=== PATIENT | male | born 1955 | race Caucasian/White ===

== ENCOUNTER → 2016-11-18 | Outpatient (CLI) | payer BC, MEDICARE ==
[~2016-11-18] MED LIST: /DULO30CA; /DULO30CA OR; BACL10TA PO; BACL10TA2; BACL10TA2 OR; FLON0.05; FLUTICASONE; LIDO5DIS; LIDO5DIS EX; LYRI200C; LYRI200C OR; SOMA250T; SOMA250T OR; THERMACARE; THERMACARE TOP; TRAM50TA2; TRAM50TA2 OR; TYLE325T5 PO; VICO5TAB; VICO5TAB OR; [UNRECOGNIZED DRUG - OTHER] PO
[2016-11-18 07:21] LABS: BASO % 0.9 % (0.0-1.0); EOS # 0.2 K/mm3 (0.0-0.50); EOS % 2.8 % (0.0-3.0); LARGE UNSTAINED CELL # 0.2 K/mm3 (0.0-0.4); LARGE UNSTAINED CELL % 3.5 % (0.0-4.0); LYMPH # 2.1 K/mm3 (1.5-4.5); LYMPH % 36.7 % (24.0-44.0); MEAN CORPUSCULAR HEMOGLOBIN 32.2 pg (27.0-33.0); MEAN CORPUSCULAR HGB CONC 33.4 g/dl (32.0-36.5); MEAN CORPUSCULAR VOLUME 96.5 fl (80.0-96.0); MONO # 0.3 K/mm3 (0.0-0.8); MONO % 5.1 % (0.0-5.0); NEUTROPHILS # 2.7 K/mm3 (1.8-7.7); PLATELET COUNT, AUTOMATED 210 k/mm3 (150-450); RED CELL DISTRIBUTION WIDTH 13.8 % (11.5-14.5); WHITE BLOOD COUNT 5.3 K/mm3 (4.0-10.0)
[2016-11-18 07:55] LABS: ALBUMIN 4.1 GM/DL (3.2-5.2); ALBUMIN/GLOBULIN RATIO 1.41 (1.00-1.93); ALKALINE PHOSPHATASE 92 U/L (45-117); ALT/SGPT 29 U/L (12-78); ANION GAP 5 MEQ/L (8-16); AST/SGOT 20 U/L (15-37); BILIRUBIN,TOTAL 0.6 MG/DL (0.2-1.0); BLOOD UREA NITROGEN 14 MG/DL (7-18); CALCIUM LEVEL 8.9 MG/DL (8.8-10.2); CARBON DIOXIDE LEVEL 31 MEQ/L (21-32); CHLORIDE LEVEL 106 MEQ/L (98-107); CHOLESTEROL LEVEL 223 MG/DL (<200); CREATININE FOR GFR 0.99 MG/DL (0.70-1.30); GLOMERULAR FILTRATION RATE > 60.0 (>49); GLUCOSE, FASTING 114 MG/DL (80-110); POTASSIUM SERUM 4.5 MEQ/L (3.5-5.1); SODIUM LEVEL 142 MEQ/L (136-145); TRIGLYCERIDES LEVEL 79 MG/DL (<150)
[2016-11-19 14:18] LABS: PSA TOTAL 0.7 ng/mL (0.0-4.0)
== END ==
LOC: M LAB 06:48
PROVIDERS: ATTEND Nurse Practitioner Family
DX: G89.4 Chronic pain syndrome (principal); Z12.5 Encounter for screening for malignant neoplasm of prostate

== ENCOUNTER → 2017-03-16 | Outpatient (CLI) | payer BC, MEDICARE ==
--- NOTE | 2017-03-16 11:01 | REP ---
Clinical: Shortness of breath . Comparison: 12/16/2014 . Technique: PA and lateral. Findings: The mediastinum and cardiac silhouette are normal. The lung peng demonstrate chronic interstitial changes and evidence for COPD without acute consolidation, effusion, or pneumothorax. The skeletal structures are intact and normal. Impression: 1. No acute cardiopulmonary process. Signed by Mitch Dean MD 03/16/2017 10:52 A
[2017-03-16 14:13] LABS: ALBUMIN 4.2 GM/DL (3.2-5.2); ALBUMIN/GLOBULIN RATIO 1.31 (1.00-1.93); ALKALINE PHOSPHATASE 87 U/L (45-117); ALT/SGPT 24 U/L (12-78); ANION GAP 8 MEQ/L (8-16); AST/SGOT 18 U/L (15-37); BILIRUBIN,TOTAL 0.6 MG/DL (0.2-1.0); BLOOD UREA NITROGEN 12 MG/DL (7-18); CALCIUM LEVEL 9.3 MG/DL (8.8-10.2); CARBON DIOXIDE LEVEL 29 MEQ/L (21-32); CHLORIDE LEVEL 106 MEQ/L (98-107); CHOLESTEROL LEVEL 139 MG/DL (<200); CREATININE FOR GFR 0.82 MG/DL (0.70-1.30); GLOMERULAR FILTRATION RATE > 60.0 (>49); GLUCOSE, FASTING 94 MG/DL (80-110); SODIUM LEVEL 143 MEQ/L (136-145); TOTAL PROTEIN 7.4 GM/DL (6.4-8.2); TRIGLYCERIDES LEVEL 58 MG/DL (<150)
[2017-03-16 14:25] LABS: POTASSIUM SERUM 5.4 MEQ/L (3.5-5.1)
== END ==
LOC: M WUC 10:01
PROVIDERS: ATTEND Nurse Practitioner Family
DX: G89.4 Chronic pain syndrome (principal)

== ENCOUNTER → 2017-05-23 | Outpatient (CLI) | payer BC, MEDICARE ==
--- NOTE | 2017-05-23 11:05 | REP ---
Clinical: Pain. History of prior trauma and surgery. Technique: AP, lateral, bilateral oblique, flexion/extension, and open-mouth views of the cervical spine. Comparison: 03/11/2015. Findings: The patient is status post anterior fusion at C3 through C7 with satisfactory alignment and appears unchanged compared to 2014. Minimal posterior subluxation at the C2-3 level is essentially unchanged. No acute fracture / compression injury or subluxation. Spinous processes are intact. Prevertebral soft tissues are normal. Oblique views demonstrate relatively patent neural foramen. Open mouth view demonstrates normal C1-C2 articulation and odontoid process. Impression: Chronic stable changes as described above. Signed by Mitch Dean MD 05/23/2017 10:57 A
--- NOTE | 2017-05-24 07:42 | REP ---
Clinical: Back pain. Prior surgery. Technique: AP, lateral, bilateral oblique, flexion/extension and coned-down views of the lumbosacral spine. Comparison: 12/23/2014. Findings: The patient is noted to be status post X-fix device spanning the L3-4 spinous process. Alignment is maintained and relatively stable compared to prior examination. Moderate multilevel degenerative changes include marginal osteophytes, endplate sclerosis and minimal disc space narrowing along with mild hypertrophic facet changes. No acute fracture / compression injury. Impression: Moderate multilevel degenerative changes. No acute fracture / compression injury or acute subluxation. Signed by Mitch Dean MD 05/23/2017 11:04 A
== END ==
LOC: M WUC 10:10
PROVIDERS: ATTEND Neurological Surgery
DX: M47.892 Other spondylosis, cervical region (principal)

== ENCOUNTER → 2017-11-04 | Outpatient (CLI) | payer BC, MEDICARE ==
[~2017-11-04] MED LIST changes: -/DULO30CA; -/DULO30CA OR; -BACL10TA PO; -BACL10TA2; -BACL10TA2 OR; -FLON0.05; -FLUTICASONE; +ISOVUE-370 76% 100ML VIAL (Q9967) As Ordered; -LIDO5DIS; -LIDO5DIS EX; -LYRI200C; -LYRI200C OR; -SOMA250T; -SOMA250T OR; -THERMACARE; -THERMACARE TOP; -TRAM50TA2; -TRAM50TA2 OR; -TYLE325T5 PO; -VICO5TAB; -VICO5TAB OR; -[UNRECOGNIZED DRUG - OTHER] PO
== END ==
LOC: M RAD 15:24
DX: R07.9 Chest pain, unspecified (principal)
CPT/HCPCS: Q9967

== ENCOUNTER → 2017-11-24 | Outpatient (REF) | payer BC, MEDICARE ==
[2017-11-24 13:04] LABS: BASO # 0.1 10^3/uL (0.0-0.2); BASO % 0.9 % (0.0-1.0); EOS # 0.1 10^3/uL (0.0-0.50); EOS % 1.7 % (0.0-3.0); HEMATOCRIT 43.5 % (42.0-52.0); HEMOGLOBIN 14.3 g/dl (13.5-17.5); IMMATURE GRANULOCYTE % 0.3 % (0-3.0); LYMPH # 1.6 10^3/uL (1.5-4.5); LYMPH % 25.1 % (24.0-44.0); MEAN CORPUSCULAR HEMOGLOBIN 31.2 pg (27.0-33.0); MEAN CORPUSCULAR HGB CONC 32.9 g/dl (32.0-36.5); MEAN CORPUSCULAR VOLUME 94.8 fl (80.0-96.0); MONO # 0.5 10^3/uL (0.0-0.8); MONO % 7.9 % (0.0-5.0); NEUTROPHILS # 4.1 10^3/uL (1.8-7.7); NEUTROPHILS % 64.1 % (36.0-66.0); PLATELET COUNT, AUTOMATED 272 10^3/uL (150-450); RED BLOOD COUNT 4.59 10^6/uL (4.30-6.10); RED CELL DISTRIBUTION WIDTH 13.4 % (11.5-14.5); WHITE BLOOD COUNT 6.5 10^3/uL (4.0-10.0)
[2017-11-24 13:26] LABS: ALBUMIN 4.1 GM/DL (3.2-5.2); ALBUMIN/GLOBULIN RATIO 1.28 (1.00-1.93); ALKALINE PHOSPHATASE 84 U/L (45-117); ALT/SGPT 24 U/L (12-78); ANION GAP 4 MEQ/L (8-16); AST/SGOT 17 U/L (7-37); BILIRUBIN,TOTAL 0.5 MG/DL (0.2-1.0); BLOOD UREA NITROGEN 17 MG/DL (7-18); CALCIUM LEVEL 9.1 MG/DL (8.8-10.2); CARBON DIOXIDE LEVEL 29 MEQ/L (21-32); CHLORIDE LEVEL 108 MEQ/L (98-107); CHOLESTEROL LEVEL 128 MG/DL (<200); CHOLESTEROL RISK RATIO 2.782 (<5); CREATININE FOR GFR 0.97 MG/DL (0.70-1.30); GLOMERULAR FILTRATION RATE > 60.0 (>49); GLUCOSE, FASTING 114 MG/DL (70-100); HDL CHOLESTEROL 46 MG/DL (>40); LDL CHOLESTEROL 71.8 MG/DL (<100); NON-HDL-C 82 MG/DL; SODIUM LEVEL 141 MEQ/L (136-145); TOTAL PROTEIN 7.3 GM/DL (6.4-8.2); TRIGLYCERIDES LEVEL 51 MG/DL (<150)
[2017-11-24 13:32] LABS: POTASSIUM SERUM 5.3 MEQ/L (3.5-5.1)
== END ==
LOC: M LABDRAW1 11:32
DX: R91.8 Other nonspecific abnormal finding of lung field (principal); E78.4 Other hyperlipidemia
CPT/HCPCS: 80053

== ENCOUNTER → 2018-03-14 | Outpatient (CLI) | payer BC, MEDICARE | LOC: M RAD 10:53 | DX: R91.8 Other nonspecific abnormal finding of lung field (principal); N20.0 Calculus of kidney | CPT/HCPCS: 71250 ==

== ENCOUNTER → 2018-07-19 | Outpatient (REF) | payer BC, MEDICARE ==
[~2018-07-19] MED LIST changes: +/DULO30CA; +/DULO30CA OR; +BACL10TA PO; +BACL10TA2; +BACL10TA2 OR; +FLON0.05; +FLUTICASONE; -ISOVUE-370 76% 100ML VIAL (Q9967) As Ordered; +LIDO5DIS; +LIDO5DIS EX; +LYRI200C; +LYRI200C OR; +SOMA250T; +SOMA250T OR; +THERMACARE; +THERMACARE TOP; +TRAM50TA2; +TRAM50TA2 OR; +TYLE325T5 PO; +VICO5TAB; +VICO5TAB OR; +[UNRECOGNIZED DRUG - OTHER] PO
[2018-07-19 12:42] LABS: BASO # 0.1 10^3/uL (0.0-0.2); BASO % 0.5 % (0.0-1.0); EOS # 0.1 10^3/uL (0.0-0.50); EOS % 0.7 % (0.0-3.0); HEMATOCRIT 42.2 % (42.0-52.0); HEMOGLOBIN 13.8 g/dl (13.5-17.5); LYMPH # 1.4 10^3/uL (1.5-4.5); LYMPH % 12.7 % (24.0-44.0); MEAN CORPUSCULAR HEMOGLOBIN 31.2 pg (27.0-33.0); MEAN CORPUSCULAR HGB CONC 32.7 g/dl (32.0-36.5); MEAN CORPUSCULAR VOLUME 95.5 fl (80.0-96.0); MONO # 0.5 10^3/uL (0.0-0.8); MONO % 4.2 % (0.0-5.0); NEUTROPHILS % 81.5 % (36.0-66.0); PLATELET COUNT, AUTOMATED 227 10^3/uL (150-450); RED BLOOD COUNT 4.42 10^6/uL (4.30-6.10)
[2018-07-19 12:50] LABS: ALBUMIN 3.9 GM/DL (3.2-5.2); ALT/SGPT 17 U/L (12-78); BILIRUBIN,TOTAL 0.6 MG/DL (0.2-1.0); BLOOD UREA NITROGEN 13 MG/DL (7-18); CALCIUM LEVEL 8.8 MG/DL (8.8-10.2); CARBON DIOXIDE LEVEL 29 MEQ/L (21-32); CHLORIDE LEVEL 106 MEQ/L (98-107); CHOLESTEROL LEVEL 123 MG/DL (<200); CHOLESTEROL RISK RATIO 2.562 (<5); CREATININE FOR GFR 0.92 MG/DL (0.70-1.30); GLOMERULAR FILTRATION RATE > 60.0 (>49); GLUCOSE, FASTING 116 MG/DL (70-100); HDL CHOLESTEROL 48 MG/DL (>40); LDL CHOLESTEROL 62 MG/DL (<100); NON-HDL-C 75 MG/DL; POTASSIUM SERUM 4.6 MEQ/L (3.5-5.1); SODIUM LEVEL 141 MEQ/L (136-145); TOTAL PROTEIN 7.1 GM/DL (6.4-8.2); TRIGLYCERIDES LEVEL 64 MG/DL (<150)
[2018-07-20 15:05] LABS: PSA TOTAL 1.1 ng/mL (0.0-4.0)
== END ==
LOC: M LABDRAW1 11:38
PROVIDERS: ATTEND Nurse Practitioner Family
DX: J44.9 Chronic obstructive pulmonary disease, unspecified (principal); Z12.5 Encounter for screening for malignant neoplasm of prostate

== ENCOUNTER → 2018-09-15 | Outpatient (CLI) | payer BC, MEDICARE ==
--- NOTE | 2018-09-15 11:18 | REP ---
CT of the chest without IV contrast: Comparisons are 03/14/2018 and 11/04/2017 for follow up of lung nodules: Multiple lung nodules are identified on 11/04/2017. On 03/14/2018 all these lung nodules as had resolved except for a persisting 10 mm lung nodule along the right minor fissure. On the study today this nodule persists and measures 12 mm as an interval change. There are no other lung nodules. All of the previous lung nodules has resolved as previously discussed. There are no acute infiltrates. No pleural effusions. There is no mediastinal or axillary lymph node enlargement. In the absence of IV contrast the study is insensitive for hilar lymph node enlargement. Thoracic aorta is unremarkable except for occasional calcified atheroma. Cardiac size is normal. There is calcified atheroma. The proximal coronary arteries. The visualized upper abdominal contents are unremarkable except for a persisting nonobstructive calculus in the right renal pelvis today measuring 9 mm. There is no adrenal mass. Impression: There is a persisting noncalcified lung nodule along the minor fissure of the right lung today measuring 12 mm. This measured 10 mm on 11/04/2017. Therefore, follow-up chest CT in approximately 6 months is recommended for further evaluation of this nodule. There is a persisting nonobstructive calcification in the right renal pelvis today measuring 12 mm . Electronically Signed by Adam Spencer MD 09/15/2018 11:10 A
== END ==
LOC: M RAD 09:58
PROVIDERS: ATTEND Internal Medicine Pulmonary Disease
DX: R91.1 Solitary pulmonary nodule (principal); N28.89 Other specified disorders of kidney and ureter

== ENCOUNTER 2018-12-27 08:58 | Day surgery (SDC) | payer BC, MEDICARE ==
[~2018-12-27] VITALS: Ht 170.2 cm; Wt 63.1 kg
[~2018-12-27 08:58] MED LIST changes: -/DULO30CA; -/DULO30CA OR; +ADV250INH INH; +ANOR1AER INH; +ATOR1TAB19 PO; +BACL-60 PO; -BACL10TA PO; +BACL1TAB8 PO; +CYMB1CAP5; +CYMB1CAP5 OR; +DULO1CAP3 PO; +FLON1SPR NARES; +HYDR-3719 PO; +LYRI200C PO; +LYRI225C PO; +NS 1,000 ML IV ONE; +PROAAER10 INH; +VICO5TAB17 PO; +ZOLP10TA2 PO
[2018-12-27] MEDS ORDERED: LIDOCAINE 2% INJ 100 MG/5 ML SDV (FOR ANES.) As Ordered ONE (09:57)
[2018-12-27] MEDS ORDERED: PROPOFOL 200 MG/20 ML VIAL As Ordered ONE (09:58)
--- NOTE | 2018-12-27 10:29 | ROOR ---
Patient Name: Lee Campos Procedure Date: 12/27/2018 9:55 AM Date of : 1955 Age: 63 Room: [facility] Gender: Male Note Status: Finalized Procedure: Colonoscopy Indications: Screening for colorectal malignant neoplasm Providers: Samuel Reinoso MD Referring MD: Mane Skinner NP Requesting Provider: Medicines: Monitored Anesthesia Care Complications: No immediate complications. Procedure: Pre-Anesthesia Assessment: - Prior to the procedure, a History and Physical was performed, and patient medications and allergies were reviewed. The patient is competent. The risks and benefits of the procedure and the sedation options and risks were discussed with the patient. All questions were answered and informed consent was obtained. Patient identification and proposed procedure were verified by the physician, the nurse and the anesthesiologist in the endoscopy suite. Mental Status Examination: alert and oriented. Airway Examination: normal oropharyngeal airway and neck mobility. Respiratory Examination: clear to auscultation. CV Examination: normal. Prophylactic Antibiotics: The patient does not require prophylactic antibiotics. Prior Anticoagulants: The patient has taken no previous anticoagulant or antiplatelet agents. ASA Grade Assessment: III - A patient with severe systemic disease. After reviewing the risks and benefits, the patient was deemed in satisfactory condition to undergo the procedure. The anesthesia plan was to use monitored anesthesia care (MAC). Immediately prior to administration of medications, the patient was re-assessed for adequacy to receive sedatives. The heart rate, respiratory rate, oxygen saturations, blood pressure, adequacy of pulmonary ventilation, and response to care were monitored throughout the procedure. The physical status of the patient was re-assessed after the procedure. The Colonoscope was introduced through the anus and advanced to the cecum, identified by appendiceal orifice and ileocecal valve. The colonoscopy was performed without difficulty. The patient tolerated the procedure well. The quality of the bowel preparation was adequate to identify polyps. Findings: The perianal and digital rectal examinations were normal. A diminutive polyp was found in the sigmoid colon. The polyp was flat. The polyp was removed with a cold snare. Resection and retrieval were complete. Estimated blood loss was minimal. The retroflexed view of the distal rectum and anal verge was normal and showed no anal or rectal abnormalities. Impression: - One diminutive polyp in the sigmoid colon, removed with a cold snare. Resected and retrieved. - The distal rectum and anal verge are normal on retroflexion view. Recommendation: - Discharge patient to home (ambulatory). - Repeat colonoscopy in 5 years for surveillance. Samuel Reinoso MD Samuel Reinoso MD 12/27/2018 10:29:12 AM Electronically signed by Samuel Reinoso MD Number of Addenda: 0 Note Initiated On: 12/27/2018 9:55 AM Estimated Blood Loss: Estimated blood loss was minimal.
[2018-12-27 11:10] VITALS: BP 108/56
== END 2018-12-27 11:12 | disposition home or self-care (01) ==
LOC: M OPP 08:58
PROVIDERS: ATTEND Surgery
DX: D12.5 Benign neoplasm of sigmoid colon (principal); Z12.11 Encounter for screening for malignant neoplasm of colon

== ENCOUNTER → 2019-03-29 | Outpatient (CLI) | payer BC, MEDICARE ==
[~2019-03-29] MED LIST changes: -DULO1CAP3 PO; +DULO1CAP6 PO; -NS 1,000 ML IV ONE
--- NOTE | 2019-03-30 06:14 | REP ---
Clinical: Follow up solitary pulmonary nodule. Comparison: 09/15/2018, 03/14/2018. Technique: Axial noncontrast images from the thoracic inlet to the upper abdomen with coronal and sagittal re-formations. Findings: A small persistent density inseparable from the minor fissure currently measures approximately 10 mm and is essentially unchanged through 11/04/2017. Stable by apical and subtle subpleural scarring along with chronic interstitial changes are again noted and unchanged. No new acute significant nodule, consolidation, or mass lesion appreciated. No pleural effusion. No pneumothorax. Tracheobronchial tree is patent. Mediastinum demonstrates atherosclerotic changes to the thoracic aorta and coronary arteries without aortic aneurysm or cardiomegaly. No pericardial effusion. No obvious adenopathy. Osseous structures are intact. Limited upper abdomen demonstrates normal bilateral adrenal glands and nonobstructing right renal calculus. Impression: 1. Persistent density inseparable from the right minor fissure unchanged through 11/04/2017 and likely representing scarring. 2. No further acute mediastinal or pleuroparenchymal process appreciated. Electronically Signed by Mitch Dean MD 03/30/2019 06:05 A
== END ==
LOC: M RAD 09:51
PROVIDERS: ATTEND Internal Medicine Pulmonary Disease
DX: R91.8 Other nonspecific abnormal finding of lung field (principal); N20.0 Calculus of kidney

== ENCOUNTER → 2020-11-03 | Outpatient (CLI) | payer BC, MEDICARE ==
--- NOTE | 2020-11-03 11:32 | REP ---
INDICATION: PAIN. COMPARISON: 05/23/2017 TECHNIQUE: Seven views FINDINGS: Vertebral body height and alignment is unchanged. Once again, internal fixation plate and a fixing screws seen C3 through C7 inclusive. Vertebral body fusion is again noted. Once again, flexion and extension is limited radiographically status quo. There is no change in appearance of the spine, intervertebral foramina, or neural canal. The fixation plate and fixing screws are unchanged.. IMPRESSION: No evidence of significant change. <Electronically signed by Florencio Mckeon > 11/03/20 [id number]
== END ==
LOC: M WUC 09:33
PROVIDERS: ATTEND Nurse Practitioner Adult Health
DX: M54.2 Cervicalgia (principal)

== ENCOUNTER → 2020-11-14 | Outpatient (CLI) | payer BC, MEDICARE ==
--- NOTE | 2020-11-14 11:21 | REP ---
INDICATION: LUNG CANCER SCREENING. COMPARISON: Comparison CT studies of the chest are from March 29, 2019, September 15, 2018, March 14, 2018, and November 04, 2017.. TECHNIQUE: Dose reduction was performed utilizing CARE dose with automated adjustment of the kV and MAS according to patient size; iterative reconstruction, automated exposure control, as well as adaptive dose shielding. Helical scanning is acquired in 3 mm axial images are generated at lung windows. FINDINGS: Preliminary digital space operations officer radiograph demonstrates hyperinflation of the lung peng and extensive cervical spine fusion plating. The previously noted 6 mm perifissural nodule on the right is again seen unchanged. This is displayed on page 65 of 118 in series 201 of today's study. To the nodular densities previously noted in the left lower lobe are no longer apparent. There is a calcified granuloma in the right lower lobe posteriorly. On today's CT study, there is a non solid 4 mm new opacity in the right middle lobe. This could be postinflammatory changes. No other new nodule is appreciated. No lung mass or marisa infiltrate is seen. There are biapical small bullae. no pleural effusion is seen. Some vascular calcifications noted. IMPRESSION: Lung RADS 2 findings. Stable perifissural nodule on the right. New 4 mm nodular opacity non solid. Repeat chest CT study recommended in 1 year. <Electronically signed by Micheal Parker > 11/14/20 111
== END ==
LOC: M RAD 09:38
PROVIDERS: ATTEND Nurse Practitioner Adult Health
DX: Z12.2 Encounter for screening for malignant neoplasm of respiratory organs (principal); Z87.891 Personal history of nicotine dependence; R91.8 Other nonspecific abnormal finding of lung field

== ENCOUNTER → 2020-12-22 | Outpatient (CLI) | payer BC, MEDICARE ==
--- NOTE | 2020-12-22 10:33 | REP ---
INDICATION: IMPINGEMENT SYNDROME OF RT SHOULDER. COMPARISON: None. TECHNIQUE: Internal rotation, external rotation, axillary and Y-view of the right shoulder FINDINGS: Evidence for prior tendon repair with plug at the greater tuberosity noted. Cortical irregularity and spurring at the acromioclavicular joint is appreciated along with minimally decreased subacromial space to approximately 7.7 mm. No periarticular calcifications or loose bodies are identified. The glenoid rim demonstrates subtle calcified blunting along the posterior aspect. There is no evidence for acute fracture or dislocation. IMPRESSION: Mild/moderate degenerative changes. <Electronically signed by Mitch Dean > 12/22/20 [id number]
== END ==
LOC: M SOG 10:07
PROVIDERS: ATTEND Orthopaedic Surgery Sports Medicine
DX: M77.8 Other enthesopathies, not elsewhere classified (principal)

== ENCOUNTER → 2021-01-10 | Outpatient (CLI) | payer BC, MEDICARE ==
--- NOTE | 2021-01-15 16:45 | REP ---
INDICATION: UNSP INJURY OF RT SHOULDER. COMPARISON: None. TECHNIQUE: Coronal oblique T1, T2 fat sat, sagittal oblique T2 fat sat, axial T2 fat sat, gradient echo. FINDINGS: Rotator cuff: There is diffuse tendinopathy/tendinitis of the supraspinatus and infraspinatus tendons. There also appears to be mild tendinopathy/tendinitis of the subscapularis tendon. There may be a small partial undersurface tear of the supraspinatus tendon. No full-thickness tear is seen. Surgical anchor is seen in the lateral humeral head from prior rotator cuff repair. Acromioclavicular joint: There is evidence of prior arthroplasty of the acromioclavicular joint with mild fluid in the joint. Acromion: Type 2 Biceps Tendon: In bicipital groove, no tenosynovitis. Hill Sach's deformity: None. Deltoid muscle: No abnormal signal. Labrum: I suspect mild fraying of the superior labrum. I suspect a small tear of the inferior labrum. Cartilage: There is mild chondromalacia at the glenohumeral joint. Bone marrow: No abnormal signal. Joint fluid: There is a very small joint effusion. IMPRESSION: Diffuse supraspinatus, infraspinatus and subscapularis tendinopathy/tendinitis. Possible small partial undersurface tear supraspinatus tendon. I suspect mild fraying of the superior labrum and a small tear of the inferior labrum. <Electronically signed by Adam Kingston > 01/15/21 [id number]
== END ==
LOC: M RAD 09:02
PROVIDERS: ATTEND Orthopaedic Surgery Sports Medicine
DX: S46.001A Unspecified injury of muscle(s) and tendon(s) of the rotator cuff of right shoulder, initial encounter (principal); M77.8 Other enthesopathies, not elsewhere classified; X58.XXXA Exposure to other specified factors, initial encounter; Y92.9 Unspecified place or not applicable; Y99.9 Unspecified external cause status

== ENCOUNTER → 2021-05-06 | Outpatient (CLI) | payer BC, MEDICARE ==
--- NOTE | 2021-05-06 15:56 | REP ---
INDICATION: PAIN. COMPARISON: None. TECHNIQUE: Two views right hip. FINDINGS: There is no evidence of acute fracture, dislocation or intrinsic bone disease. The hip joint appears normal. There are mild vascular calcifications in the soft tissues of the thigh. IMPRESSION: Negative right hip series. Mild vascular calcifications. <Electronically signed by Adam Kingston > 05/06/21 [id number]
== END ==
LOC: M WUC 10:46
PROVIDERS: ATTEND Nurse Practitioner Adult Health
DX: M25.551 Pain in right hip (principal)

== ENCOUNTER → 2021-05-15 | Outpatient (CLI) | payer BC, MEDICARE ==
--- NOTE | 2021-05-15 13:22 | REP ---
INDICATION: LOW BACK PAIN. COMPARISON: 05/23/2017 TECHNIQUE: Five views FINDINGS: Once again, there is bilateral marginal osteophyte formation seen at all levels status quo. Once again, there is posterior fixation seen at L3-4 status quo. Vertebral body height and alignment is unchanged. There is disc space narrowing at every level status quo. There are degenerative facet joint changes seen bilaterally at every level possibly increased slightly from the prior exam. There is anterior lipping seen at every level status quo. IMPRESSION: Chronic changes as described above. <Electronically signed by Florencio Mckeon > 05/15/21 [id number]
== END ==
LOC: M WUC 10:02
PROVIDERS: ATTEND Nurse Practitioner Adult Health
DX: M25.78 Osteophyte, vertebrae (principal); M51.37 Other intervertebral disc degeneration, lumbosacral region; M54.50 Low back pain, unspecified

== ENCOUNTER → 2021-06-08 | Outpatient (CLI) | payer BC, MEDICARE | LOC: M RAD 16:41 | PROVIDERS: ATTEND Orthopaedic Surgery | DX: M51.16 Intervertebral disc disorders with radiculopathy, lumbar region (principal); M43.16 Spondylolisthesis, lumbar region; M51.26 Other intervertebral disc displacement, lumbar region; M48.062 Spinal stenosis, lumbar region with neurogenic claudication; M51.37 Other intervertebral disc degeneration, lumbosacral region ==

== ENCOUNTER → 2021-09-29 | Outpatient (CLI) | payer BC, MEDICARE | LOC: M SOG 10:53 | PROVIDERS: ATTEND Orthopaedic Surgery | DX: M25.511 Pain in right shoulder (principal); Z98.890 Other specified postprocedural states ==

== ENCOUNTER → 2021-11-05 | Outpatient (CLI) | payer BC, MEDICARE ==
[~2021-11-05] MED LIST changes: +ISOVUE-300 61% 50ML VIAL As Ordered ONE; +LIDOCAINE 1% MDV 20ML VIAL As Ordered ONE; +PROHANCE 279.3MG/ML 5ML VIAL As Ordered ONE
== END ==
LOC: M RADPRO 06:30
PROVIDERS: ATTEND Orthopaedic Surgery
DX: R93.7 Abnormal findings on diagnostic imaging of other parts of musculoskeletal system (principal); S46.001A Unspecified injury of muscle(s) and tendon(s) of the rotator cuff of right shoulder, initial encounter; M47.22 Other spondylosis with radiculopathy, cervical region; X58.XXXA Exposure to other specified factors, initial encounter; Y92.9 Unspecified place or not applicable
CPT/HCPCS: 23350; 72141; 73223; 77002; A9576; Q9967

== ENCOUNTER → 2021-11-24 | Outpatient (CLI) | payer BC, MEDICARE ==
[~2021-11-24] MED LIST changes: -ISOVUE-300 61% 50ML VIAL As Ordered ONE; -LIDOCAINE 1% MDV 20ML VIAL As Ordered ONE; -PROHANCE 279.3MG/ML 5ML VIAL As Ordered ONE
== END ==
LOC: M RAD 10:34
PROVIDERS: ATTEND Nurse Practitioner Adult Health
DX: Z12.2 Encounter for screening for malignant neoplasm of respiratory organs (principal); F17.210 Nicotine dependence, cigarettes, uncomplicated; J98.4 Other disorders of lung

== ENCOUNTER → 2022-02-28 | Outpatient (CLI) | payer BC, MEDICARE ==
[~2022-02-28] MED LIST changes: +FLUT1BLS5 INH; +PREG225C PO; +ZOLP12.518 PO
== END ==
LOC: M LABSMTC 10:16
PROVIDERS: ATTEND Anesthesiology
DX: Z01.818 Encounter for other preprocedural examination (principal); Z20.822 Contact with and (suspected) exposure to COVID-19

== ENCOUNTER → 2022-03-02 | Outpatient (CLI) | payer BC, MEDICARE | LOC: M CARPUL 09:42 | PROVIDERS: ATTEND Internal Medicine Pulmonary Disease | DX: R91.8 Other nonspecific abnormal finding of lung field (principal) ==

== ENCOUNTER 2022-03-03 08:18 | Day surgery (SDC) | payer BC, MEDICARE ==
[~2022-03-03] VITALS: Ht 170.2 cm; Wt 64.0 kg
[~2022-03-03 08:18] MED LIST changes: +NS 1,000 ML IV ONE
[2022-03-03] MEDS ORDERED: LIDOCAINE 2% INJ 100 MG/5 ML SYRINGE As Ordered ONE (09:18)
[2022-03-03] MEDS ORDERED: propofoL 200 MG/20 ML VIAL As Ordered ONE (09:18)
[2022-03-03 09:50] VITALS: BP 111/66
== END 2022-03-03 10:00 | disposition home or self-care (01) ==
LOC: M OPP 08:18
PROVIDERS: ATTEND Surgery
DX: Z12.11 Encounter for screening for malignant neoplasm of colon (principal); Z86.010 Personal history of colon polyps; Z80.0 Family history of malignant neoplasm of digestive organs; K63.5 Polyp of colon; E78.00 Pure hypercholesterolemia, unspecified; J44.9 Chronic obstructive pulmonary disease, unspecified; Z79.02 Long term (current) use of antithrombotics/antiplatelets; Z79.51 Long term (current) use of inhaled steroids; Z79.891 Long term (current) use of opiate analgesic; Z79.899 Other long term (current) drug therapy; Z91.030 Bee allergy status; Z87.891 Personal history of nicotine dependence

== ENCOUNTER → 2022-04-07 | Outpatient (CLI) | payer BC, MEDICARE ==
[~2022-04-07] MED LIST changes: -NS 1,000 ML IV ONE
== END ==
LOC: M RAD 09:37
PROVIDERS: ATTEND Internal Medicine Pulmonary Disease
DX: R91.8 Other nonspecific abnormal finding of lung field (principal)

== ENCOUNTER → 2022-12-29 | Outpatient (CLI) | payer BC, MEDICARE | LOC: M PLAIMG 09:48 | PROVIDERS: ATTEND Internal Medicine Pulmonary Disease | DX: R91.8 Other nonspecific abnormal finding of lung field (principal) ==

== ENCOUNTER → 2023-11-02 | Outpatient (CLI) | payer MEDICARE ==
[~2023-11-02] MED LIST changes: -PREG225C PO; +[UNRECOGNIZED DRUG - CODE] PO
== END ==
LOC: M WUC 09:13
PROVIDERS: ATTEND Nurse Practitioner Adult Health
DX: M25.551 Pain in right hip (principal); M47.9 Spondylosis, unspecified

== ENCOUNTER → 2024-03-27 | Outpatient (CLI) | payer OTHER ==
[~2024-03-27] MED LIST changes: -ZOLP12.518 PO; +ZOLP12.535 PO
== END ==
LOC: M RAD 09:21
PROVIDERS: ATTEND Internal Medicine Pulmonary Disease
DX: Z12.2 Encounter for screening for malignant neoplasm of respiratory organs (principal); Z87.891 Personal history of nicotine dependence

== ENCOUNTER → 2024-07-08 | Outpatient (REF) | payer OTHER ==
[~2024-07-08] MED LIST changes: -ADV250INH INH; +ADVA1AER9 INH
== END ==
LOC: M LAB REF 17:59
PROVIDERS: ATTEND Student in an Organized Health Care Education/Training Program
DX: R30.0 Dysuria (principal)

== ENCOUNTER 2024-07-13 10:50 | Emergency (ER) | payer MEDICARE, OTHER ==
[~2024-07-13] VITALS: Ht 170.2 cm; Wt 65.5 kg
[2024-07-13 12:08] LABS: BASO % 0.3 % (0.0-1.0); HEMATOCRIT 45.7 % (42.0-52.0); HEMOGLOBIN 15.7 g/dl (13.5-17.5); LYMPH # 0.9 10^3/uL (1.5-5.0); LYMPH % 9.2 % (24.0-44.0); MEAN CORPUSCULAR HEMOGLOBIN 32.3 pg (27.0-33.0); MEAN CORPUSCULAR HGB CONC 34.4 g/dl (32.0-36.5); MONO # 0.9 10^3/uL (0.0-0.8); MONO % 9.4 % (2.0-8.0); NEUTROPHILS # 7.9 10^3/uL (1.5-8.5); NEUTROPHILS % 80.9 % (36.0-66.0); PLATELET COUNT, AUTOMATED 178 10^3/uL (150-450); RED BLOOD COUNT 4.86 10^6/uL (4.30-6.10); WHITE BLOOD COUNT 9.7 10^3/uL (4.0-10.0)
[2024-07-13 12:24] LABS: INR 0.94; PARTIAL THROMBOPLASTIN TIME 31.2 SECONDS (24.8-34.2); PROTHROMBIN TIME 12.8 SECONDS (12.5-14.5)
[2024-07-13 12:34] LABS: ALBUMIN 4.3 G/DL (3.2-5.2); BILIRUBIN,DIRECT 0.3 MG/DL (<0.4); BILIRUBIN,TOTAL 0.9 MG/DL (0.3-1.2); TOTAL PROTEIN 7.7 G/DL (5.7-8.2)
[2024-07-13] MEDS: methylPREDNISolone 125MG 2ML VIAL IV ONE (13:44)
[2024-07-13 13:45] LABS: KETONE, URINE AUTO RFX 1+ mg/dL (NEGATIVE); LEUKOCYTE ESTERASE UR AUTO RFX NEGATIVE (NEGATIVE); MUCUS, URINE RFX LARGE (NEGATIVE); NITRITE, URINE AUTO RFX NEGATIVE (NEGATIVE); RBC, URINE AUTO RFX TNTC /HPF (0-3); SQUAM EPITHELIAL CELL UR AURFX 0 /HPF (0-6); YEAST LIKE CELL URINE AUTO RFX LARGE
[2024-07-13 13:48] LABS: WBC, URINE AUTO RFX 15 /HPF (0-3)
[2024-07-13] MEDS: IPRATROPIUM 0.5MG/ALBUTEROL 2.5MG INH SOL UD 3ML (DUONEB) NEB ONE (14:08)
[2024-07-13 15:06] VITALS: O2SAT 94
[2024-07-13] MEDS ORDERED: ISOVUE-370 76% 100ML VIAL As Ordered ONE (15:08)
[2024-07-13 15:13] VITALS: BP 132/84; TEMP 99.3; O2SAT 94
[2024-07-13] MEDS ORDERED: FLUC10TA PO (17:30)
[2024-07-13] MEDS ORDERED: SULF1TAB23 PO (17:30)
== END 2024-07-13 17:37 | disposition home or self-care (01) ==
LOC: M ED 10:50
DX: U07.1 COVID-19 (principal); N30.01 Acute cystitis with hematuria; R93.49 Abnormal radiologic findings on diagnostic imaging of other urinary organs; N20.0 Calculus of kidney; K76.0 Fatty (change of) liver, not elsewhere classified; E78.5 Hyperlipidemia, unspecified; J45.909 Unspecified asthma, uncomplicated; J44.9 Chronic obstructive pulmonary disease, unspecified; Z87.891 Personal history of nicotine dependence; Z79.899 Other long term (current) drug therapy; Z91.030 Bee allergy status; Z91.89 Other specified personal risk factors, not elsewhere classified
CPT/HCPCS: 71046; 74177; 80047; 80076; 81001; 83690; 85025; 85610; 85730; 87086; 87486; 87581; 87633; 87798; 94640; 96374; 99284; J2919; Q9967

== ENCOUNTER → 2024-07-25 | Outpatient (CLI) | payer MEDICARE ==
[~2024-07-25] MED LIST changes: +FLUC10TA PO; +SULF1TAB23 PO
[2024-07-25 12:14] LABS: HEMATOCRIT 42.3 % (42.0-52.0); HEMOGLOBIN 14.3 g/dl (13.5-17.5); MEAN CORPUSCULAR HEMOGLOBIN 32.3 pg (27.0-33.0); MEAN CORPUSCULAR HGB CONC 33.8 g/dl (32.0-36.5); MEAN CORPUSCULAR VOLUME 95.5 fl (80.0-96.0); PLATELET COUNT, AUTOMATED 252 10^3/uL (150-450); RED BLOOD COUNT 4.43 10^6/uL (4.30-6.10); WHITE BLOOD COUNT 12.1 10^3/uL (4.0-10.0)
== END ==
LOC: M WUC 10:34
PROVIDERS: ATTEND Physician Assistant
DX: R31.0 Gross hematuria (principal); Z12.5 Encounter for screening for malignant neoplasm of prostate

== ENCOUNTER → 2024-07-27 | Outpatient (CLI) | payer MEDICARE | LOC: M PLAIMG 10:49 | PROVIDERS: ATTEND Internal Medicine Pulmonary Disease | DX: R91.8 Other nonspecific abnormal finding of lung field (principal) ==

== ENCOUNTER → 2024-08-08 | Outpatient (REF) | payer MEDICARE ==
[2024-08-09 10:56] LABS: APPEARANCE, URINE MANUAL CLOUDY (CLEAR); COLOR, URINE MANUAL AMBER (YELLOW)
[2024-08-09 10:57] LABS: PROTEIN, URINE MANUAL 3+ mg/dL (NEGATIVE)
[2024-08-09 10:58] LABS: BILIRUBIN, URINE MANUAL NEGATIVE (NEGATIVE); BLOOD URINE MANUAL POSITIVE (NEGATIVE); GLUCOSE, URINE (UA) MANUAL NEGATIVE (NEGATIVE); KETONE, URINE MANUAL NEGATIVE (NEGATIVE); LEUKOCYTE ESTERASE, URINE MAN POSITIVE (NEGATIVE); NITRITE, URINE MANUAL POSITIVE (NEGATIVE); UROBILINOGEN, URINE MANUAL NORMAL (NORMAL)
[2024-08-09 12:03] LABS: RBC, URINE TNTC /hpf (0-3); SQUAMOUS EPITHELIAL CELL URINE NONE SEEN /hpf (SMALL AMT)
[2024-08-09 12:04] LABS: BACTERIA, URINE SMALL AMOUNT; HYALINE CAST, URINE NONE SEEN /lpf (0-1)
== END ==
LOC: M SMT 09:56
PROVIDERS: ATTEND Urology
DX: R31.0 Gross hematuria (principal)

== ENCOUNTER → 2024-08-21 | Outpatient (CLI) | payer MEDICARE ==
[2024-08-21 11:44] LABS: INR 0.85; PROTHROMBIN TIME 11.9 SECONDS (12.5-14.5)
[2024-08-21 11:55] LABS: HEMATOCRIT 40.1 % (42.0-52.0); HEMOGLOBIN 13.2 g/dl (13.5-17.5); MEAN CORPUSCULAR HEMOGLOBIN 32.2 pg (27.0-33.0); MEAN CORPUSCULAR HGB CONC 32.9 g/dl (32.0-36.5); MEAN CORPUSCULAR VOLUME 97.8 fl (80.0-96.0); PLATELET COUNT, AUTOMATED 212 10^3/uL (150-450); WHITE BLOOD COUNT 9.2 10^3/uL (4.0-10.0)
[2024-08-21 11:59] LABS: ALBUMIN 3.8 G/DL (3.2-5.2); ALKALINE PHOSPHATASE 85 U/L (40-129); ALT/SGPT 19 U/L (7.0-40); AST/SGOT 20 U/L (<34); BILIRUBIN,TOTAL 0.6 MG/DL (0.3-1.2); BLOOD UREA NITROGEN 17 MG/DL (9-23); CALCIUM LEVEL 9.2 MG/DL (8.3-10.6); CARBON DIOXIDE LEVEL 28 MMOL/L (20-31); CHLORIDE LEVEL 107 MMOL/L (98-107); CREATININE FOR GFR 0.81 MG/DL (0.70-1.30); GLOMERULAR FILTRATION RATE > 60.0 (>49); GLUCOSE, FASTING 111 MG/DL (74-106); POTASSIUM SERUM 4.8 MMOL/L (3.5-5.1); SODIUM LEVEL 142 MMOL/L (136-145)
== END ==
LOC: M WUC 09:12
PROVIDERS: ATTEND Urology
DX: R31.0 Gross hematuria (principal)

== ENCOUNTER → 2024-09-07 | Outpatient (REF) | payer MEDICARE ==
[~2024-09-07] MED LIST changes: +ALBU8.5H; +FLUT1BLS8; +HYDR-4433
[2024-09-07 13:16] LABS: APPEARANCE, URINE CLOUDY (CLEAR); BACTERIA, URINE AUTO 1+ (NEGATIVE); BILIRUBIN, URINE AUTO NEGATIVE (NEGATIVE); BLOOD, URINE BLOOD 2+ (NEGATIVE); COLOR, URINE RED (YELLOW); GLUCOSE, URINE (UA) AUTO NEGATIVE (NEGATIVE); KETONE, URINE AUTO NEGATIVE (NEGATIVE); LEUKOCYTE ESTERASE, URINE AUTO NEGATIVE (NEGATIVE); MUCUS, URINE SMALL (NEGATIVE); NITRITE, URINE AUTO NEGATIVE (NEGATIVE); PROTEIN, URINE AUTO 2+ mg/dL (NEGATIVE); RBC, URINE AUTO TNTC /HPF (0-3); SPECIFIC GRAVITY URINE AUTO 1.009 (1.002-1.035); SQUAMOUS EPITHELIAL CELL UR AU 0 /HPF (0-6); UROBILINOGEN, URINE AUTO 0.2 mg/dL (0.0-2.0); WBC, URINE AUTO 88 /HPF (0-3)
== END ==
LOC: M LAB REF 12:31
PROVIDERS: ATTEND Urology
DX: R31.0 Gross hematuria (principal)

== ENCOUNTER 2024-09-17 11:00 | Day surgery (SDC) | payer MEDICARE ==
[~2024-09-17] VITALS: Ht 172.7 cm; Wt 67.3 kg
[2024-09-17] MEDS ORDERED: LR 1,000 ML IV SCH ×2 (12:20→14:00)
[2024-09-17] MEDS ORDERED: ROCURONIUM BROMIDE 50MG/5ML VIAL As Ordered ONE (12:26)
[2024-09-17] MEDS ORDERED: ONDANSETRON 4MG 2ML VIAL As Ordered ONE (12:26)
[2024-09-17] MEDS ORDERED: LIDOCAINE 2% 100MG/5ML SDV (FOR ANES.) As Ordered ONE (12:26)
[2024-09-17] MEDS ORDERED: propofoL 200 MG/20 ML VIAL As Ordered ONE (12:26)
[2024-09-17] MEDS ORDERED: fentaNYL 100 MCG/2 ML INJECTION As Ordered ONE (12:27)
[2024-09-17] MEDS ORDERED: PHENYLephrine 500MCG 5ML (100MCG/ML) SYRINGE As Ordered ONE (12:30)
[2024-09-17] MEDS ORDERED: ePHEDrine SULFATE 25 MG/5 ML(5MG/ML) SYRINGE As Ordered ONE (12:30)
[2024-09-17] MEDS: ceFAZolin SOD 2 GM in IV 1 EA IV ONE (12:55)
[2024-09-17] MEDS ORDERED: ACETAMINOPHEN 1000MG/100ML IV BAG As Ordered ONE (12:58)
[2024-09-17] MEDS ORDERED: SUGAMMADEX SODIUM 500 MG/5 ML VIAL (BRIDION) As Ordered ONE (13:08)
[2024-09-17] MEDS ORDERED: KETOROLAC 60MG 2ML VIAL As Ordered ONE (13:27)
[2024-09-17] MEDS ORDERED: ONDANSETRON 4MG 2ML VIAL IV PRN (14:00)
[2024-09-17] MEDS: HYDROMORPHONE HCL 0.5 MG/ 0.5 ML SYRINGE IV PRN ×2 (14:38→16:01)
[2024-09-17] MEDS: fentaNYL 100 MCG/2 ML INJECTION IV PRN (14:50)
[2024-09-17] MEDS: oxyCODONE 5MG TAB PO PRN (15:10)
[2024-09-17] MEDS: oxyBUTYnin 5 MG TAB PO PRN (15:25)
[2024-09-17] MEDS ORDERED: OXYB5TAB14 PO (15:48)
[2024-09-17] MEDS ORDERED: PYRI1TAB5 PO (15:48)
[2024-09-17] MEDS ORDERED: MACR100C43 PO (15:48)
[2024-09-17 17:50] VITALS: BP 169/71; TEMP 97; O2SAT 96
== END 2024-09-17 17:58 | disposition home or self-care (01) ==
LOC: M SDC 11:00
PROVIDERS: ATTEND Urology
DX: C67.4 Malignant neoplasm of posterior wall of bladder (principal); C67.1 Malignant neoplasm of dome of bladder; J45.909 Unspecified asthma, uncomplicated; E78.00 Pure hypercholesterolemia, unspecified; Z79.899 Other long term (current) drug therapy; Z91.030 Bee allergy status; Z91.038 Other insect allergy status; Z87.891 Personal history of nicotine dependence
CPT/HCPCS: 52240; 88305; 88307; J0131; J0690; J1100; J1171; J1885; J2371; J2405; J3010

== ENCOUNTER 2024-09-23 10:02 | Emergency (ER) | payer MEDICARE ==
[~2024-09-23] VITALS: Ht 172.7 cm; Wt 68.2 kg
[~2024-09-23 10:02] MED LIST changes: +MACR100C43 PO; +OXYB5TAB14 PO; +PYRI1TAB5 PO
[2024-09-23 12:07] LABS: BASO # 0.1 10^3/uL (0.0-0.2); BASO % 0.5 % (0.0-1.0); EOS % 0.4 % (0.0-3.0); HEMATOCRIT 38.6 % (42.0-52.0); HEMOGLOBIN 12.8 g/dl (13.5-17.5); LYMPH % 9.8 % (24.0-44.0); MEAN CORPUSCULAR HGB CONC 33.2 g/dl (32.0-36.5); MEAN CORPUSCULAR VOLUME 96.5 fl (80.0-96.0); MONO # 0.6 10^3/uL (0.0-0.8); MONO % 6.2 % (2.0-8.0); NEUTROPHILS # 8.1 10^3/uL (1.5-8.5); NEUTROPHILS % 82.8 % (36.0-66.0); PLATELET COUNT, AUTOMATED 200 10^3/uL (150-450); WHITE BLOOD COUNT 9.8 10^3/uL (4.0-10.0)
[2024-09-23 12:10] LABS: KETONE, URINE AUTO RFX 1+ mg/dL (NEGATIVE); MUCUS, URINE RFX SMALL (NEGATIVE); RBC, URINE AUTO RFX TNTC /HPF (0-3); SQUAM EPITHELIAL CELL UR AURFX 0 /HPF (0-6)
[2024-09-23 12:25] LABS: LEUKOCYTE ESTERASE UR AUTO RFX TRACE (NEGATIVE); NITRITE, URINE AUTO RFX POSITIVE (NEGATIVE); WBC, URINE AUTO RFX 16 /HPF (0-3)
[2024-09-23 12:33] LABS: BLOOD UREA NITROGEN 17 MG/DL (9-23); CALCIUM LEVEL 8.9 MG/DL (8.3-10.6); CARBON DIOXIDE LEVEL 27 MMOL/L (20-31); CHLORIDE LEVEL 106 MMOL/L (98-107); CREATININE FOR GFR 0.84 MG/DL (0.70-1.30); GLOMERULAR FILTRATION RATE > 60.0 (>42); GLUCOSE, FASTING 107 MG/DL (74-106); SODIUM LEVEL 143 MMOL/L (136-145)
[2024-09-23] MEDS: NORCO, ANEXSIA 5/325MG TABLET (HYDROcodone/ACETAMINOPHEN) PO ONE (13:05)
[2024-09-23 13:23] VITALS: BP 146/88; TEMP 98.4; O2SAT 97
[2024-09-23] MEDS ORDERED: CEFD300C PO (14:36)
[2024-09-25] MEDS ORDERED: LEVO1TAB38 PO (18:23)
== END 2024-09-23 14:49 | disposition home or self-care (01) ==
LOC: M ED 10:02
DX: N30.01 Acute cystitis with hematuria (principal); T83.511A Infection and inflammatory reaction due to indwelling urethral catheter, initial encounter; E78.5 Hyperlipidemia, unspecified; J44.9 Chronic obstructive pulmonary disease, unspecified; Z87.891 Personal history of nicotine dependence; Z79.899 Other long term (current) drug therapy; Z91.030 Bee allergy status

== ENCOUNTER → 2024-10-30 | Outpatient (REF) | payer MEDICARE ==
[~2024-10-30] MED LIST changes: +CEFD300C PO; +LEVO1TAB38 PO
[2024-10-30 13:13] LABS: APPEARANCE, URINE CLEAR (CLEAR); BACTERIA, URINE AUTO NEGATIVE (NEGATIVE); BILIRUBIN, URINE AUTO NEGATIVE (NEGATIVE); BLOOD, URINE BLOOD 2+ (NEGATIVE); COLOR, URINE YELLOW (YELLOW); GLUCOSE, URINE (UA) AUTO NEGATIVE (NEGATIVE); KETONE, URINE AUTO NEGATIVE (NEGATIVE); LEUKOCYTE ESTERASE, URINE AUTO 1+ (NEGATIVE); NITRITE, URINE AUTO NEGATIVE (NEGATIVE); PROTEIN, URINE AUTO NEGATIVE (NEGATIVE); RBC, URINE AUTO 6 /HPF (0-3); SQUAMOUS EPITHELIAL CELL UR AU 0 /HPF (0-6); UROBILINOGEN, URINE AUTO 0.2 mg/dL (0.0-2.0); WBC, URINE AUTO 12 /HPF (0-3)
== END ==
LOC: M SMT 12:37
PROVIDERS: ATTEND Urology
DX: C67.8 Malignant neoplasm of overlapping sites of bladder (principal)

== ENCOUNTER → 2024-11-22 | Outpatient (CLI) | payer MEDICARE ==
[~2024-11-22] VITALS: Ht 172.7 cm; Wt 68.0 kg
[~2024-11-22] MED LIST changes: +ONDA-84 PO; +PROC10TA5 PO
[2024-11-22 08:52] VITALS: TEMP 97.1
[2024-11-22] MEDS: ceFAZolin SODIUM 2 GM in DEXTROSE 5% (D5W) ADV/MINI-BAG 50 ML IV ONE (09:13)
[2024-11-22] MEDS: NS (Normal Saline) 0.9% 1,000 ML IV SCH (09:13)
[2024-11-22] MEDS: LIDOCAINE 1% MDV 20ML VIAL SC SCH (09:53)
[2024-11-22] MEDS: fentaNYL 100 MCG/2 ML INJECTION IV PRN (09:54)
[2024-11-22] MEDS: MIDAZOLAM INJ 2MG/2ML VIAL IV PRN (09:54)
[2024-11-22 10:15] VITALS: BP 139/60; O2SAT 96
== END ==
LOC: M IRPRO 08:41
PROVIDERS: ATTEND Internal Medicine Medical Oncology
DX: C67.9 Malignant neoplasm of bladder, unspecified (principal)
CPT/HCPCS: 36561; 99152; 99153; C1894; J0690; J1642; J2250; J3010

== ENCOUNTER → 2025-02-05 | Outpatient (CLI) | payer MEDICARE ==
[~2025-02-05] MED LIST changes: +DEXT1TAB15 PO; +GNP250TA9 PO
== END ==
LOC: M PLARAD 09:47
PROVIDERS: ATTEND Nurse Practitioner Family
DX: C67.8 Malignant neoplasm of overlapping sites of bladder (principal)
CPT/HCPCS: 78815; A9552

== ENCOUNTER → 2025-03-18 | Outpatient (CLI) | payer MEDICARE ==
[~2025-03-18] MED LIST changes: +ISOVUE-370 76% 100 ML VIAL As Ordered ONE
== END ==
LOC: M RAD 14:21
PROVIDERS: ATTEND Urology
DX: C76.8 Malignant neoplasm of other specified ill-defined sites (principal); R91.8 Other nonspecific abnormal finding of lung field; K76.0 Fatty (change of) liver, not elsewhere classified
CPT/HCPCS: 71260; 82565; Q9967